=== PATIENT | female | born 1970 | race African-American/Black ===

== ENCOUNTER 2018-07-23 22:46 | Emergency (ER) | payer OTHER ==
[~2018-07-23] VITALS: Ht 167.6 cm; Wt 99.8 kg
[~2018-07-23 22:46] MED LIST: ATEN-42 PO; HYDR25TA PO; LOSA50TA3 PO; OMEP40CA34 PO
[2018-07-23] MEDS ORDERED: ONDANSETRON HCL 4MG/2ML INJ IV STA (23:45)
[2018-07-23] MEDS ORDERED: SODIUM CHLORIDE 0.9% 1,000 ML IV ONE (23:45)
[2018-07-23] MEDS ORDERED: MORPHINE SULFATE 4 MG/ML CPJ (NOT FOR IM USE) IV STA (23:45)
[2018-07-24 00:16] LABS: EOSINOPHILS % 2.5 % (0.0-5.0); HEMATOCRIT. 39.7 % (36.0-48.0); HEMOGLOBIN. 12.8 g/dL (12.0-16.0); LYMPHOCYTES % 34.7 % (20.0-50.0); MEAN CORPUSCULAR VOLUME 80.7 fL (81.0-99.0); MEAN PLATELET VOLUME 7.5 fl (7.4-10.4); MONOCYTES % 8.1 % (2.0-8.0); NEUTROPHILS % 53.7 % (40.0-76.0); PLATELET 277 x1000/uL (130-400); RED BLOOD CELL COUNT 4.92 mill/uL (4.2-5.4); RED CELL DISTRIBUTION WIDTH 14.4 % (11.6-14.6)
[2018-07-24 00:18] LABS: CHLORIDE 104 mEq/L (98-107)
[2018-07-24] MEDS ORDERED: KETOROLAC 15MG/ML VIAL IV ONE (02:00)
[2018-07-24 02:21] VITALS: BP 140/86
== END 2018-07-24 02:30 | disposition home or self-care (01) ==
LOC: ER 22:46
DX: R51 Headache (principal); H53.149 Visual discomfort, unspecified; R11.0 Nausea; R42 Dizziness and giddiness; I10 Essential (primary) hypertension; Z88.3 Allergy status to other anti-infective agents; Z79.899 Other long term (current) drug therapy
CPT/HCPCS: 36415; 70450; 80048; 81025; 85025; 96361; 96374; 96375; 99284; J1885; J2270; J2405; J7030

== ENCOUNTER 2018-08-16 07:12 | Emergency (ER) | payer MEDICAID ==
[~2018-08-16] VITALS: Ht 167.6 cm; Wt 95.0 kg
[2018-08-16] MEDS ORDERED: IBUPROFEN 600MG TABLET PO ONE (08:15)
[2018-08-16 08:32] LABS: BASOPHILS % 0.8 % (0.0-2.0); EOSINOPHILS % 2.4 % (0.0-5.0); HEMOGLOBIN. 12.9 g/dL (12.0-16.0); LYMPHOCYTES % 33.3 % (20.0-50.0); MEAN CORPUSCULAR VOLUME 80.8 fL (81.0-99.0); MEAN PLATELET VOLUME 7.4 fl (7.4-10.4); MONOCYTES % 8.9 % (2.0-8.0); NEUTROPHILS % 54.6 % (40.0-76.0); PLATELET 279 x1000/uL (130-400); RED BLOOD CELL COUNT 4.95 mill/uL (4.2-5.4); RED CELL DISTRIBUTION WIDTH 14.7 % (11.6-14.6)
[2018-08-16 08:36] LABS: CHLORIDE 105 mEq/L (98-107)
[2018-08-16 10:29] VITALS: BP 145/99
== END 2018-08-16 10:31 | disposition home or self-care (01) ==
LOC: ER 07:12
DX: R05 Cough (principal); R07.89 Other chest pain; I10 Essential (primary) hypertension; Z88.8 Allergy status to other drugs, medicaments and biological substances
CPT/HCPCS: 36415; 71045; 81025; 83880; 84484; 93005; 99284

== ENCOUNTER 2018-10-14 21:51 | Emergency (ER) | payer MEDICAID ==
[~2018-10-14] VITALS: Ht 165.1 cm; Wt 100.0 kg
[2018-10-14] MEDS ORDERED: ENALAPRIL 2.5MG/2ML VIAL 2ML IV ONE (22:45)
[2018-10-14 23:32] LABS: EOSINOPHILS % 2.8 % (0.0-5.0); HEMATOCRIT. 37.3 % (36.0-48.0); HEMOGLOBIN. 12.1 g/dL (12.0-16.0); LYMPHOCYTES % 42.4 % (20.0-50.0); MEAN CORPUSCULAR HEMOGLOBIN 26.2 pg (28.0-32.0); MEAN CORPUSCULAR VOLUME 80.5 fL (81.0-99.0); MEAN PLATELET VOLUME 7.4 fl (7.4-10.4); MONOCYTES % 7.8 % (2.0-8.0); PLATELET 288 x1000/uL (130-400); RED BLOOD CELL COUNT 4.63 mill/uL (4.2-5.4); RED CELL DISTRIBUTION WIDTH 14.7 % (11.6-14.6)
[2018-10-14 23:43] LABS: CHLORIDE 106 mEq/L (98-107)
[2018-10-15] MEDS ORDERED: HYDROCODONE/ACETAMINOPHEN 5/325MG TABLET PO SCH (00:30)
[2018-10-15 03:19] VITALS: BP 127/84
== END 2018-10-15 03:23 | disposition home or self-care (01) ==
LOC: ER 23:00
DX: I10 Essential (primary) hypertension (principal); R51 Headache; Z88.8 Allergy status to other drugs, medicaments and biological substances
CPT/HCPCS: 36415; 71045; 93005; 99284

== ENCOUNTER 2019-02-22 13:34 | Emergency (ER) | payer SELFPAY ==
[~2019-02-22] VITALS: Ht 167.6 cm; Wt 100.0 kg
[2019-02-22] MEDS ORDERED: KETOROLAC 30MG/ML VIAL IV STA (14:06)
[2019-02-22] MEDS ORDERED: SODIUM CHLORIDE 0.9% 1,000 ML IV ONE (14:06)
[2019-02-22 14:49] LABS: BASOPHILS % 1.2 % (0.0-2.0); EOSINOPHILS % 2.6 % (0.0-5.0); HEMOGLOBIN. 12.7 g/dL (12.0-16.0); LYMPHOCYTES % 37.5 % (20.0-50.0); MEAN CORPUSCULAR HEMOGLOBIN 25.7 pg (28.0-32.0); MEAN CORPUSCULAR VOLUME 79.2 fL (81.0-99.0); MEAN PLATELET VOLUME 7.6 fl (7.4-10.4); MONOCYTES % 5.3 % (2.0-8.0); NEUTROPHILS % 53.4 % (40.0-76.0); PLATELET 261 x1000/uL (130-400); RED BLOOD CELL COUNT 4.93 mill/uL (4.2-5.4); RED CELL DISTRIBUTION WIDTH 15.2 % (11.6-14.6)
[2019-02-22 14:55] LABS: CHLORIDE 106 mEq/L (98-107)
[2019-02-22 14:59] LABS: ETHANOL BLOOD < 10 mg/dL
[2019-02-22] MEDS ORDERED: DIPHENHYDRAMINE 50MG/ML VIAL IV ONE (15:00)
[2019-02-22] MEDS ORDERED: METOCLOPRAMIDE HCL 10MG/2ML VIAL IV ONE (15:00)
[2019-02-22 15:03] LABS: HCG SCREEN NEGATIVE
[2019-02-22 16:00] VITALS: BP 132/85
== END 2019-02-22 16:12 | disposition home or self-care (01) ==
LOC: ER 13:34
DX: R51 Headache (principal); I10 Essential (primary) hypertension; Z79.899 Other long term (current) drug therapy; Z88.6 Allergy status to analgesic agent
CPT/HCPCS: 36415; 80053; 80320; 84703; 85025; 93005; 96374; 96375; 99284; J1200; J1885; J2765; J7030; G0480

== ENCOUNTER 2022-12-14 20:23 | Emergency (ER) | payer OTHER ==
[~2022-12-14] VITALS: Ht 170.2 cm; Wt 100.0 kg
[~2022-12-14 20:23] MED LIST changes: +LOSA-413 PO; -LOSA50TA3 PO; +OMEP40CA20 PO; -OMEP40CA34 PO
[2022-12-14 20:25] VITALS: TEMP 98.5; O2SAT 99
[2022-12-14] MEDS ORDERED: ONDANSETRON HCL 4MG/2ML INJ IV STA (22:25)
[2022-12-14] MEDS ORDERED: MORPHINE SULFATE 4 MG/ML CPJ (NOT FOR IM USE) IV STA (22:25)
[2022-12-14] MEDS ORDERED: SODIUM CHLORIDE 0.9% 1,000 ML IV ONE (22:30)
[2022-12-14 23:27] LABS: BASOPHILS % 0.5 % (0.0-2.0); EOSINOPHILS % 1.7 % (0.0-5.0); HEMATOCRIT. 37.6 % (36.0-48.0); HEMOGLOBIN. 12.4 g/dL (12.0-16.0); LYMPHOCYTES % 31.2 % (20.0-50.0); MEAN CORPUSCULAR HEMOGLOBIN 25.8 pg (28.0-32.0); MEAN PLATELET VOLUME 7.4 fl (7.4-10.4); NEUTROPHILS % 59.6 % (40.0-76.0); PLATELET 306 x1000/uL (130-400); RED BLOOD CELL COUNT 4.82 mill/uL (4.2-5.4); RED CELL DISTRIBUTION WIDTH 14.7 % (11.6-14.6)
[2022-12-14 23:38] LABS: CHLORIDE 106 mEq/L (98-107)
[2022-12-15] MEDS ORDERED: IBUP-2029 MT (02:47)
[2022-12-15] MEDS ORDERED: METH-653 MT (02:47)
[2022-12-15 03:13] VITALS: BP 131/99; PULSE 68; RESP 16
[2022-12-15] MEDS ORDERED: IOHEXOL-300 100 ML BOTTLE ONE (03:45)
== END 2022-12-15 03:18 | disposition home or self-care (01) ==
LOC: ER 20:23
DX: S39.91XA Unspecified injury of abdomen, initial encounter (principal); I10 Essential (primary) hypertension; Z88.3 Allergy status to other anti-infective agents; Z86.59 Personal history of other mental and behavioral disorders; V89.2XXA Person injured in unspecified motor-vehicle accident, traffic, initial encounter; Y93.89 Activity, other specified; Y92.89 Other specified places as the place of occurrence of the external cause; Y99.8 Other external cause status
CPT/HCPCS: 99285; 70450; 96374; 96361; 71045; 96375; 80048; 85025; 36415; 74177; J2405; J2270; J7030; Q9967